=== PATIENT | male | born 1965 | race Caucasian/White ===

== ENCOUNTER 2016-11-14 07:22 | Day surgery (SDC) | payer MEDICARE, OTHER ==
[2016-11-12 16:06] VITALS: BMI 23.7
[~2016-11-14 07:22] MED LIST: ALPRAZolam 0.25 MG TAB PO PRN; ALPRAZolam 0.5 MG TAB PO PRN; ASPIRIN 325 MG TAB PO STA; ATORVASTATIN 80 MG TAB PO STA; NITROGLYCERIN SL TABS 0.4 MG TAB SUBLINGUAL PRN; SODIUM CHLORIDE 0.9% 1,000 ML in EMPTY BAG 1 BAG IV ONE
[2016-11-14 07:58] VITALS: RESP 18
[2016-11-14 08:40] LABS: Basophils % (A) 1 %; CH 29.3; CHCM 34.5; Eosinophils # (A) 0.1 k/uL (0-0.7); Eosinophils % (A) 2 %; HCT 40.1 % (39.0-53.0); HDW 2.86; HGB 13.7 gm/dL (13.0-17.5); Luc # (Auto) 0.15; Luc % (Auto) 4; Lymphocytes % (A) 48 %; MCH 29.2 pg (25.0-35.0); MCHC 34.2 g/dL (31.0-37.0); MCV 85.4 fL (80.0-100.0); Monocytes # (A) 0.3 k/uL (0-1.0); Monocytes % (A) 8 %; Neutrophils # (A) 1.6 k/uL (1.3-7.7); Neutrophils % (A) 38 %; RDW 13.3 % (11.5-15.5); WBC 4.1 k/uL (3.8-10.6); WBC (Perox) 4.23
[2016-11-14 08:43] LABS: Anion Gap 7 mmol/L; Blood Urea Nitrogen 11 mg/dL (9-20); Calcium 9.4 mg/dL (8.4-10.2); Carbon Dioxide 29 mmol/L (22-30); Chloride 104 mmol/L (98-107); Glucose 89 mg/dL (74-99); Non-African American GFR(MDRD) >60 (>60 ml/min/1.73 sqM); Potassium 4.4 mmol/L (3.5-5.1); Sodium 140 mmol/L (137-145)
[2016-11-14] MEDS ORDERED: MIDAZOLAM 2 MG/2 ML VIAL ONE (09:11)
[2016-11-14] MEDS ORDERED: fentaNYL (PF) 50 MCG/ML 2 ML AMP ONE (09:11)
[2016-11-14] MEDS ORDERED: diphenhydrAMINE 50 MG/ML 1 ML VIAL ONE (09:12)
[2016-11-14] MEDS ORDERED: MIDAZOLAM 2 MG/2 ML VIAL IVP ONE (09:15)
[2016-11-14] MEDS ORDERED: diphenhydrAMINE 50 MG/ML 1 ML VIAL IVP ONE (09:15)
[2016-11-14] MEDS ORDERED: LIDOCAINE 2% INJ 20 MG/ML SQ ONE (09:24)
[2016-11-14] MEDS ORDERED: IOHEXOL 350 MG/ML 125ML BOTTLE INJ ONE (09:35)
[2016-11-14] MEDS ORDERED: RX INFO: IV CONTRAST WAS GIVEN 1 EACH MISC MISCELLANE PRN (09:43)
[2016-11-14] MEDS ORDERED: SODIUM CHLORIDE 0.9% 1,000 ML IV SCH (09:45)
--- NOTE | 2016-11-14 10:19 | CC ---
DATE OF SERVICE: INDICATION: Chest pain with abnormal stress test. The patient is a 51-year-old patient of Dr. Garces who evaluated him, had a stress test that was abnormal due to which he advised him to undergo cardiac catheterization by me. I am seeing the patient for the first time at the cardiac catheterization lab. The patient understands risks, benefits, and alternatives. PROCEDURE NOTE: After obtaining informed consent, left heart catheterization and coronary angiogram are performed via the right femoral artery using standard Harman catheters. Patient tolerated the procedure well without any obvious immediate complications. A femoral angiogram was performed and Angio-Seal was deployed for hemostasis. Total sedation time was 15 minutes. FINDINGS: 1. HEMODYNAMICS: Left ventricular end-diastolic pressure is 10 to 12 mm. There is no significant gradient across the aortic valve. 2. LEFT VENTRICULOGRAM: Left ventriculogram is not performed. 3. ANGIOGRAPHIC DATA: LEFT MAIN CORONARY ARTERY: Left main coronary artery is a normal vessel and is free of stenosis. It divides into left anterior descending coronary artery and circumflex coronary artery. LAD and its branches, circumflex coronary artery and its branches are free of significant stenosis. Right coronary artery is a large dominant vessel and is free of significant stenosis. CONCLUSIONS: Normal coronary arteries and normal left ventricular end-diastolic pressure. PLAN: I reviewed angiographic data with the patient and told him that his stress test is a false positive stress test and his management is going to be in the form of risk factor modification especially smoking cessation.
[2016-11-14 12:10] VITALS: TEMP 98
[2016-11-14 13:36] VITALS: PULSE 60
[2016-11-14 14:17] VITALS: BP 107/62
== END 2016-11-14 14:12 | disposition home or self-care (01) ==
LOC: CATHCVL 07:22
PROVIDERS: ATTEND Internal Medicine Cardiovascular Disease
DX: R94.39 Abnormal result of other cardiovascular function study (principal); R07.89 Other chest pain; I42.0 Dilated cardiomyopathy; F17.210 Nicotine dependence, cigarettes, uncomplicated; K21.9 Gastro-esophageal reflux disease without esophagitis; F41.9 Anxiety disorder, unspecified; Z79.899 Other long term (current) drug therapy
CPT/HCPCS: 93458; 99152; 80048; 85025; C1760; C1894; C1769; J2001; J2250; J1200; Q9967

== ENCOUNTER → 2017-10-06 | Outpatient (CLI) | payer MEDICARE, OTHER ==
--- NOTE | 2017-10-07 07:59 | CT ---
EXAMINATION TYPE: CT abdomen pelvis w con DATE OF EXAM: 10/06/2017 COMPARISON: NONE HISTORY: Carcinoid tumor, observation for mets CT DLP: 1012 mGycm, Automated Exposure Control for Dose Reduction was Utilized. CONTRAST: CT scan of the abdomen and pelvis is performed with oral and with IV Contrast, patient injected with 100 mL of Isovue 300. FINDINGS: LUNG BASES: Dependent atelectasis in both bases is present. LIVER/GB: Gallbladder is not visualized and presumed surgically absent. Cholecystectomy clips are liudmila ntified. PANCREAS: No significant abnormality is seen. SPLEEN: No significant abnormality is seen. ADRENALS: Slight thickening to both adrenal glands favors benign hyperplasia. KIDNEYS: There is symmetric cortical medullary uptake and excretion from both kidneys without evidenc e of concerning solid or cystic renal mass or hydronephrosis bilaterally. Along the left posterior ma rgin of the bladder there is cystic lesion or more likely outpouching axial image 74 favoring diverti culum. Some scattered pelvic phleboliths are seen. BOWEL: The oral contrast reaches ileal loops in the right lower quadrant. Evaluation of distal bowel is slightly suboptimal. There are small bowel feces sign in the terminal ileum. There is no suspiciou s small or large bowel dilatation. The amount of fecal material is fairly prominent through majority of colon. There is some redundant sigmoid colon. Normal-appearing appendix is seen from cecum just ab ove iliac crest near axial image 44. PROSTATE/SEMINAL VESICLES: Prostate gland is upper limits of normal in size bulging on bladder base LYMPH NODES: There are some scattered nonspecific subcentimeter lymph nodes in the upper to mid abdo shahbaz mesentery and retroperitoneal levels. There is suspicious mass or hyperdense lymph node in the paraduodenal groove measuring 2.1 x 1.7 cm axial image 29. Subcentimeter symmetric bilateral groin ly mph nodes incidentally noted. OSSEOUS STRUCTURES: Spine is straightened on sagittal images. There is mild disc space narrowing post eriorly at L5-S1 level. There is mild to moderate joint space loss in both hips with mild acetabular spurring. OTHER: No significant additional abnormality is seen. IMPRESSION: Suspicious right upper to mid abdominal mass, possible malignant lesion related to known carcinoid tumor. Correlation with old outside study is advised.
== END ==
LOC: RADCTMAIN 18:11
PROVIDERS: ATTEND Internal Medicine Hematology & Oncology
DX: C7A.00 Malignant carcinoid tumor of unspecified site (principal)
CPT/HCPCS: 74177; Q9967

== ENCOUNTER → 2018-04-28 | Outpatient (CLI) | payer MEDICARE, OTHER ==
--- NOTE | 2018-04-28 14:14 | CT ---
EXAMINATION TYPE: CT abdomen pelvis w con DATE OF EXAM: 04/28/2018 COMPARISON: 10/06/2017 HISTORY: Malignant carcinoid tumor, observe for mets CT DLP: 679.90 mGycm Automated exposure control for dose reduction was used. TECHNIQUE: Helical acquisition of images was performed from the lung bases through the pelvis. CONTRAST: Performed with Oral Contrast and with IV Contrast, patient injected with 100 mL of Isovue 300. FINDINGS: LUNG BASES: Minimal bibasilar subsegmental dependent atelectasis is noted. LIVER/GB: Hepatic parenchyma enhances homogeneously. There is extra hepatic biliary ductal dilatation likely secondary to surgical absence of the gallbladder. PANCREAS: No significant abnormality is seen. SPLEEN: No significant abnormality is seen. ADRENALS: Again there is slight thickening of the adrenal glands although they maintain a normal adre niform shape favoring benign adrenal gland hyperplasia. KIDNEYS: Kidneys enhance and excrete symmetrically. There is a similar-appearing cystic outpouching o f the left lateral urinary bladder in comparison to the prior again favoring a urinary bladder divert iculum. Circumferential urinary bladder wall thickening likely relates to incomplete distention. REPRODUCTIVE ORGANS: Prostate gland is heterogenous and enlarged measuring approximately 5.8 cm in tr ansverse dimension. ADENOPATHY: No greater than 1 cm short axis lymph node is seen within the abdomen or pelvis. Shoddy adenopathy is seen in the root of the mesentery and retroperitoneum within the periaortic region. OSSEOUS STRUCTURES: Minimal multilevel degenerative changes of the spine are noted. Straightening of the usual lumbar lordosis is present. BOWEL: No evidence of dilated large or small bowel. Moderate amount retained colonic stool is seen. OTHER: There are similar size of the hyperdense mass in the pancreaticoduodenal groove on image 38 cu rrently measuring approximately 1.8 x 2.1 cm and previously measuring approximately 1.7 x 2.1 cm on t he exam of 10/06/2017. IMPRESSION: STABILITY IN SIZE OF THE MESENTERIC MASS IN THE PANCREATICODUODENAL GROOVE IN COMPARISON TO THE EXAM OF 10/06/2017 REPRESENTING THE PATIENT'S KNOWN CARCINOID TUMOR. NO NEW HEPATIC LESIONS ARE SEEN OR CHRIS DENCE OF VISCERAL METASTASIS WITHIN THE ABDOMEN OR PELVIS.
== END | disposition home or self-care (01) ==
LOC: RADCTMAIN 11:05
PROVIDERS: ATTEND Internal Medicine Hematology & Oncology
DX: C7A.010 Malignant carcinoid tumor of the duodenum (principal)
CPT/HCPCS: 74177; Q9967